=== PATIENT | female | born 1995 | race Caucasian/White ===

== ENCOUNTER 2017-04-19 11:34 | Inpatient (IN) | payer OTHER ==
[~2017-04-19] VITALS: Ht 157.5 cm; Wt 63.0 kg
[2017-04-19] MEDS ORDERED: PREN1TAB80 PO (14:06)
[2017-04-19] MEDS ORDERED: RINGERS SOLUTION,LACTATED 1,000 ML IV PRN (14:24)
[2017-04-19] MEDS ORDERED: OXYTOCIN 30 UNITS/LACT RINGERS 500 ML IV ONE (14:24)
[2017-04-19] MEDS ORDERED: MISOPROSTOL 100 MCG TABLET VG ONE ×2 (14:30→21:00)
[2017-04-19] MEDS ORDERED: CITRIC ACID/SODIUM CITRATE 30 ML SOLUTION UDCUP PO PRN (14:30)
[2017-04-19] MEDS ORDERED: FentaNYL CITRATE-PF 100 MCG/2 ML VIAL IVP PRN (14:30)
[2017-04-19] MEDS ORDERED: LIDOCAINE HCL/PF 1% 30 ML VIAL INJ PRN (14:30)
[2017-04-19] MEDS ORDERED: METOCLOPRAMIDE HCL 5 MG/ML 2 ML VIAL IVP PRN (14:30)
[2017-04-19 14:31] VITALS: BP 122/90
[2017-04-19] MEDS: RINGERS SOLUTION,LACTATED 1,000 ML IV SCH ×2 (14:51→21:03)
[2017-04-19 15:38] LABS: BASOPHILS % (AUTO) 0.3 % (0.0-2.0); EOSINOPHILS % (AUTO) 0.7 % (1.0-6.0); HEMOGLOBIN 13.6 g/dL (12.0-16.0); LYMPHOCYTES # (AUTO) 1.6 K/uL (1.0-4.8); LYMPHOCYTES % (AUTO) 16.4 % (22.0-44.0); MEAN CORPUSCULAR HEMOGLOBIN 28.3 pg (26.0-34.0); MEAN CORPUSCULAR VOLUME 86 fL (80-100); MONOCYTES # (AUTO) 0.5 K/uL (0.1-1.0); MONOCYTES % (AUTO) 5.1 % (2.0-9.0); NEUTROPHILS # (AUTO) 7.6 K/uL (1.8-7.7); NEUTROPHILS % (AUTO) 77.5 % (40.0-70.0); RED BLOOD CELL COUNT(AUTO) 4.79 MIL/uL (4.00-5.20); RED CELL DISTRIBUTION WIDTH 13.8 % (11.5-14.5); WHITE BLOOD COUNT (AUTO) 9.9 K/uL (4.5-11.0)
[2017-04-19] MEDS ORDERED: OXYGEN THERAPY IH SCH (20:00)
[2017-04-19] MEDS ORDERED: ACETAMINOPHEN 1000 MG/ISO-OSM 100 ML IV ONE (23:30)
[2017-04-20] MEDS ORDERED: MISOPROSTOL 100 MCG TABLET VG SCH
[2017-04-20] MEDS ORDERED: MISOPROSTOL 100 MCG TABLET VG ONE
[2017-04-20] MEDS ORDERED: BUPIVACAINE HCL/PF 0.25% 10 ML VIAL ONE (00:41)
[2017-04-20] MEDS ORDERED: FentaNYL/BUPIV 0.125%/NS/PF 200 ML ED ONE (00:42)
[2017-04-20] MEDS ORDERED: LIDOCAINE HCL/PF 2% 5 ML VIAL ONE (00:42)
[2017-04-20] MEDS: RINGERS SOLUTION,LACTATED 1,000 ML IV SCH ×3 (01:00→12:40)
[2017-04-20] MEDS ORDERED: FentaNYL/BUPIV 0.125%/NS/PF 200 ML ED PRN (01:16)
[2017-04-20] MEDS ORDERED: PROMETHAZINE HCL 12.5 MG in SODIUM CHLORIDE 0.9% 50 ML IV PRN (01:30)
[2017-04-20] MEDS ORDERED: ONDANSETRON HCL 4 MG/2 ML VIAL IVP PRN (01:30)
[2017-04-20] MEDS ORDERED: NALBUPHINE HCL 10 MG/ML VIAL IVP PRN ×2 (01:30)
[2017-04-20] MEDS ORDERED: DiphenhydrAMINE HCL 50 MG/ML VIAL IVP PRN (01:30)
[2017-04-20] MEDS ORDERED: ZOLPIDEM TARTRATE 5 MG TABLET PO ONE (02:00)
[2017-04-20] MEDS ORDERED: OXYTOCIN 30 UNITS/LACT RINGERS 500 ML IV PRN (03:56)
[2017-04-20] MEDS: AMPICILLIN SODIUM 2 GM/NS 100 ML IV SCH ×3 (04:03→16:37)
[2017-04-20] MEDS: GENTAMICIN 120 MG/NACL ISO-OSM 100 ML IV SCH ×2 (04:31→12:40)
[2017-04-20] MEDS ORDERED: BENZOCAINE 20%/MENTHOL 56 GM SPRAY CANISTER TP PRN (15:00)
[2017-04-20] MEDS ORDERED: GLYCERIN/WITCH HAZEL LEAF 40 PADS JAR TP PRN (15:00)
[2017-04-20] MEDS ORDERED: ACETAMINOPHEN/CODEINE 300-30 MG TABLET PO PRN ×2 (15:00)
[2017-04-20] MEDS ORDERED: LANOLIN 7 GM OINTMENT TP PRN (15:00)
[2017-04-20] MEDS ORDERED: IBUPROFEN 800 MG TABLET PO SCH (17:00)
[2017-04-21] MEDS: MAGNESIUM HYDROXIDE SUSPENSION 30 ML UDCUP PO SCH ×2 (00:20→10:07)
[2017-04-21] MEDS ORDERED: SENNA/DOCUSATE SODIUM 187-50 MG TABLET PO ONE (14:00)
[2017-04-21] MEDS ORDERED: IBUP-1547 PO ×4 (14:48→14:54)
== END 2017-04-21 15:00 | disposition home or self-care (01) | DRG 775 ==
LOC: 4S 12:24 → OBSVTOIN 14:24
PROVIDERS: ADMIT Obstetrics & Gynecology; ATTEND Obstetrics & Gynecology
PROC: 3E0S3CZ (ICD-10-PCS; principal; 2017-04-20)
PROC: 10D07Z6 Extraction of Products of Conception, Vacuum, Via Natural or Artificial Opening (ICD-10-PCS; 2017-04-20)
PROC: 00HU33Z Insertion of Infusion Device into Spinal Canal, Percutaneous Approach (ICD-10-PCS; 2017-04-20)
DX: O70.1 Second degree perineal laceration during delivery (principal); Z37.0 Single live birth; Z3A.40 40 weeks gestation of pregnancy
CPT/HCPCS: 76805; 88307; J0131; J0290; J1580; J2405; J2590; J3490; J7120